=== PATIENT | male | born 1955 | race African-American/Black ===

== ENCOUNTER 2016-11-23 18:36 | Emergency (ER) | payer MEDICAID, OTHER ==
[~2016-11-23] VITALS: Ht 193 cm; Wt 117.9 kg
[2016-11-23 20:19] LABS: Basophils # (auto) 0.1 uL; Basophils % (auto) 1.2 % (0.0-2.0); Eosinophils # (auto) 0.2 uL; Eosinophils % (auto) 4.9 % (0.0-7.0); Hematocrit 45.7 % (41.0-53.0); Hemoglobin 14.9 g/dL (13.5-17.5); Lymphocytes # (auto) 1.5 uL; Lymphocytes % (auto) 35.2 % (10.0-50.0); Mean Corpuscular Hemoglobin 27.8 pg (28.0-32.0); Mean Corpuscular Hgb Conc. 32.5 g/dL (32.0-36.0); Mean Corpuscular Volume 85.4 fL (80.0-100.0); Mean Platelet Volume 7.9 fL (7.4-10.4); Monocytes # (auto) 0.5 uL; Monocytes % (auto) 10.4 % (0.0-12.0); Neutrophils # (auto) 2.1 uL; Neutrophils % (auto) 48.3 % (37.0-80.0); Platelet Count (auto) 192 10^3/uL (140-450); Red Cell Distribution Width 14.3 % (11.6-16.0); White Blood Cell 4.4 10^3/uL (4.4-10.8)
[2016-11-23 20:29] LABS: INR 1.14 (0.9-1.15); Partial Thromboplastin Time 30.3 sec (22.64-33.71); Prothrombin Time 11.7 sec (9.37-12.3)
[2016-11-23 20:48] LABS: Albumin 3.4 g/dL (3.4-5.0); BUN/Creatinine Ratio 12.2; Calcium 7.9 mg/dL (8.5-10.1); Potassium 3.7 mmol/L (3.5-5.1)
[2016-11-23 20:51] LABS: Bilirubin, Total 0.4 mg/dL (0.2-1.0); Total Protein 7.5 g/dL (6.4-8.2)
[2016-11-24] MEDS ORDERED: cloNIDine HCL 0.1 MG TAB PO ONE (01:15)
[2016-11-24 02:34] LABS: Urine Bilirubin Negative (Negative); Urine Blood Negative /uL (Negative); Urine Color Yellow (Yellow); Urine Glucose Normal (Normal); Urine Ketone Negative (Negative); Urine Mucus FEW (None Seen); Urine Nitrite Negative (Negative); Urine RBC 1 /hpf (0 - 3); Urine Squamous Epithelial Cell FEW /hpf (<5); Urine Urobilinogen Normal (Negative); Urine pH 5.5 (5.0-8.0)
[2016-11-24 02:57] VITALS: BP 156/99
== END 2016-11-24 03:24 | disposition home or self-care (01) ==
LOC: ER 18:43
DX: I10 Essential (primary) hypertension (principal); R60.0 Localized edema; R51 Headache; Z76.0 Encounter for issue of repeat prescription
CPT/HCPCS: 36415; 70450; 80053; 81001; 85025; 85379; 85610; 85730; 93970